=== PATIENT | female | born 1970 | race Caucasian/White ===

== ENCOUNTER 2017-01-03 08:24 | Emergency (ER) | payer MEDICARE, OTHER ==
[~2017-01-03 08:24] MED LIST: ACIPHEX20 MG PO; ALBUTEROL17 GM INH; ALPRAZOLAM PO; ALPRAZOLAM0.5 MG PO; AMBIEN PO; AMITIZA24 MCG PO; AMLODIPINE BESY10 MG PO; AMOXIL500 M2 PO; ATENOLOL PO; ATENOLOL50 MG PO; ATIVAN0.5 M1 PO; BIAXIN PO; CAPTOPRIL; CARAFATE PO; CLARITIN10 M2 PO; CLARITIN10 MG PO; CLONIDINE HCL0.1 MG PO; COLACE PO; CYANOCOBAL1000 MCG/M INJ; DAKIN'S473 M1 MC; DESYREL100 MG PO; DESYREL50 M1 PO; DIAZEPAM10 MG PO; DIFLUCAN PO; DOC-Q-LACE100 MG PO; DOCUSATE SODIU100 MG PO; DSS100 MG PO; DYNACIN100 MG PO; FUROSEMIDE40 MG PO; GABAPENTIN600 MG PO; GLUCOTROL XL PO; HCTZ; HCTZ PO; HYOMAX0.125 MG PO; IRON325 ( 651 PO; JANUVIA PO; KADIAN PO; KADIAN100 MG PO; LANTUS SOLOSTAR3 ML SQ; LASIX PO; LASIX20 MG PO; LEVAQUIN750 MG; LEVAQUIN750 MG PO; LISINOPRIL10 MG PO; LISINOPRIL20 MG PO; LOPID600 MG PO; LORTAB 10-3251 EACH PO; LORTAB 10/500 T1 TAB PO; LORTAB 101 TAB 10/5 PO; LORTAB 7.5-3251 EACH PO; LORTAB PO; LYRICA PO; MACROBID100 M1 PO; MINOCIN100 M1 PO; MUSCLE RELAXANT PO; NEURONTIN100 MG PO; NEURONTIN300 MG PO; NEXIUM PO; NORCO 10/3251 TAB PO; NORFLEX100 M1; NORVASC PO; NORVASC10 MG PO; OXYCONTIN40 MG PO; PERCOCET 10/3251 TAB PO; PERCOCET 5-3251 TAB PO; PERCOCET 7.5-31 EACH PO; PHENERGAN25 M1 DOB; PHENERGAN25 M1 PO; PHENERGAN25 MG PO; PRAVASTATIN SOD40 MG PO; PRILOSEC20 M1 PO; PRILOSEC20 MG PO; PROTONIX PO; PROVERA5 MG PO; QUETIAPINE FUMA25 MG PO; RANITIDINE HCL150 M1 PO; REGLAN10 MG PO; SINGULAIR PO; SOMA PO; TENORMIN50 MG PO; TRAZODONE PO; VIT B12 INJ; VIT D2 PO; VITAMIN D; VOLTAREN75 MG PO; XANAX1 MG PO; ZANTAC PO; ZANTAC150 MG PO; ZESTRIL10 MG PO; ZOLPIDEM TARTRA10 MG PO; ZYRTEC; [UNRECOGNIZED DRUG - OTHER] TOP
[2017-04-26] MEDS ORDERED: ROBAXIN 750750 M1 PO (14:07)
[2017-04-26] MEDS ORDERED: TIZANIDINE HCL4 M1 PO (14:07)
[2017-04-26] MEDS ORDERED: ROPINIROLE HCL0.5 MG PO (14:08)
[2017-04-26] MEDS ORDERED: NEURONTIN600 MG PO (14:08)
[2017-04-26] MEDS ORDERED: TENORMIN50 MG PO (14:08)
[2017-04-26] MEDS ORDERED: MONTELUKAST SOD10 MG PO (14:09)
[2017-04-26] MEDS ORDERED: AMLODIPINE BESYL5 MG PO (14:09)
[2017-04-26] MEDS ORDERED: PHENERGAN25 MG PO (14:10)
[2017-04-26] MEDS ORDERED: AMBIEN10 MG PO (14:10)
[2017-04-26] MEDS ORDERED: PRINIVIL20 M1 PO (14:10)
[2017-04-26] MEDS ORDERED: HYDROXYZINE PAM25 MG PO (14:11)
[2017-04-26] MEDS ORDERED: DESYREL150 M1 PO (14:11)
[2017-04-26] MEDS ORDERED: XANAX1 MG PO (14:11)
[2017-04-26] MEDS ORDERED: PROTONIX PO (14:12)
[2017-04-26] MEDS ORDERED: HYDROCODON-ACE1 EAC5 PO (14:13)
== END 2017-01-03 09:04 | disposition home or self-care (01) ==
LOC: SED 08:24
DX: L03.115 Cellulitis of right lower limb (principal); I25.2 Old myocardial infarction; I10 Essential (primary) hypertension; J44.9 Chronic obstructive pulmonary disease, unspecified; K21.9 Gastro-esophageal reflux disease without esophagitis; Z90.49 Acquired absence of other specified parts of digestive tract; F17.200 Nicotine dependence, unspecified, uncomplicated; Z79.899 Other long term (current) drug therapy; Z88.2 Allergy status to sulfonamides; Z88.1 Allergy status to other antibiotic agents; Z91.013 Allergy to seafood
CPT/HCPCS: 99282

== ENCOUNTER 2017-03-17 21:12 | Emergency (ER) | payer MEDICARE, OTHER ==
--- NOTE | ~2017-03-17 | US98 ---
[facility] A Service of [facility] RADIOLOGY TEXT RESULTS PATIENT: ANNE MURPHY LOCATION: [facility] : 72 UNIT #: [id number] AGE: [address]: Daniele Noe SEX: F ORDER DR: [id number] [facility] [address] [place], [place] [address] [id number] E MR#: [id number] Acc #: [id number] NAME: ANNE MURPHY : 1970 SEX: F STUDY DATE/TIME: 03/18/2017 0:03 UNIT: BHAVYA ROOM: STUDY DESCRIPTION: US Pelvic Non-OB Complete Attending Physician: Daniele Noe P.A.-C. Ordering Physician: Daniele Noe P.A.-C. Primary Care Physician: Rudy Rosenthal M.D. MEDICAL IMAGING REPORT This report is preliminary unless electronic signature is present EXAM Pelvic ultrasound INDICATION Pelvic pain for 3 days with history of ovarian cysts. COMPARISON 09/19/2015. FINDINGS Transvaginal and transabdominal imaging was performed. The uterus is about 7.0 x 3.1 x 4.1 cm and appears normal. The endometrial tissue is normal measuring 4 mm in thickness. The left ovary is 3.3 cm in diameter and contains a cyst measuring 2 cm in diameter. The right ovary is 2 cm in diameter and appears normal. There is flow in each ovary. The echogenic lesion seen previously in the left ovary in September has resolved. IMPRESSION 1. 2 cm left ovarian cyst. 2. Normal flow in both ovaries. 3. Normal uterus and endometrial tissue. Dictated by... Porfirio Houston M.D. THIS IS AN ELECTRONICALLY VERIFIED REPORT Porfirio Houston M.D. at 03/18/2017 12:38 PM JEFF/goyo [facility] A Service of [facility] RADIOLOGY TEXT RESULTS PATIENT: ANNE MURPHY LOCATION: [facility] : 72 UNIT #: [id number] AGE: [address]: Daniele Noe SEX: F ORDER DR: TD: 03/18/2017 09:35 JOB #: [id number] MEDICAL IMAGING REPORT Page 1 of 1 COPY
[2017-03-17 23:22] LABS: URINE SOURCE CLEAN CATCH
[2017-03-17 23:26] LABS: URINE APPEARANCE CLEAR; URINE BILIRUBIN NEG (NEG); URINE BLOOD NEG (NEG); URINE COLOR YELLOW; URINE GLUCOSE NEG (NEG); URINE KETONE NEG (NEG); URINE LEUKOCYTE ESTERASE 1+ (NEG); URINE NITRATE POS (NEG); URINE PROTEIN NEG (NEG); URINE SPECIFIC GRAVITY 1.017 (1.003-1.035); URINE UROBILINOGEN 0.2 MG/DL (NEG)
[2017-03-17 23:27] LABS: CULTURE INDICATED? YES; U HYALINE CASTS AUWI 0-2 /[LPF]; URBCS1 AUWI 0-2 /[HPF] (0-2); URINE BACTERIA AUWI 3+ (NEGATIVE); URINE SQUAMOUS EPITHELIAL CELL NONE SEEN /[HPF]
[2017-03-18 00:32] LABS: BASOPHIL% 0.6 % (0-2.5); DIFF IND NO; EOSINOPHIL# 0.1 X10e3 (0-0.7); EOSINOPHIL% 0.7 % (0.0-7.0); HEMATOCRIT 38.9 % (35.0-45.0); HEMOGLOBIN 12.4 gm/dL (12.0-16.0); LYMPHOCYTE# 2.6 X10e3 (1.0-3.5); LYMPHOCYTE% 33.7 % (17.0-45.0); MEAN PLATELET VOLUME 8.7 FL (6.5-11.5); MONOCYTE# 0.7 X10e3 (0-1.0); MONOCYTE% 9.3 % (3.0-12.0); NEUTROPHIL# 4.3 X10e3 (1.5-7.1); NEUTROPHIL% 55.7 % (40-75); PLATELET COUNT 263 X10e3 (140-420); RED BLOOD COUNT 4.14 X10e (3.90-5.30); RED CELL DISTRIBUTION WIDTH 16.9 % (11.0-15.5); WHITE BLOOD COUNT 7.8 X10e3 (4.0-10.5)
[2017-03-18 00:40] LABS: ALBUMIN SERUM 4.2 g/dL (3.5-5.0); ALKALINE PHOSPHATASE 57 U/L (32-92); ALT (SGPT) 15 U/L (10-40); AST (SGOT) 19 U/L (10-42); BILIRUBIN, DIRECT <0.1 mg/dL (0.0-0.2); BILIRUBIN,INDIRECT 0.4 mg/dL (0.0-0.9); BILIRUBIN,TOTAL 0.5 mg/dL (0.2-2.0); BLOOD UREA NITROGEN 21 mg/dL (9-23); CALCIUM SERUM 9.2 mg/dL (8.4-10.2); CARBON DIOXIDE 27 mmol/L (22-31); CHLORIDE 104 mmol/L (100-111); GLUCOSE FASTING 94 mg/dL (70-110); LIPASE 27 U/L (22-51); POTASSIUM 4.2 mmol/L (3.5-5.1); PROTEIN TOTAL SERUM 7.5 g/dL (6.0-8.3); SODIUM 140 mmol/L (135-145)
[2017-04-26] MEDS ORDERED: TIZANIDINE HCL4 M1 PO (14:07)
[2017-04-26] MEDS ORDERED: ROBAXIN 750750 M1 PO (14:07)
[2017-04-26] MEDS ORDERED: ROPINIROLE HCL0.5 MG PO (14:08)
[2017-04-26] MEDS ORDERED: NEURONTIN600 MG PO (14:08)
[2017-04-26] MEDS ORDERED: TENORMIN50 MG PO (14:08)
[2017-04-26] MEDS ORDERED: MONTELUKAST SOD10 MG PO (14:09)
[2017-04-26] MEDS ORDERED: AMLODIPINE BESYL5 MG PO (14:09)
[2017-04-26] MEDS ORDERED: PHENERGAN25 MG PO (14:10)
[2017-04-26] MEDS ORDERED: PRINIVIL20 M1 PO (14:10)
[2017-04-26] MEDS ORDERED: AMBIEN10 MG PO (14:10)
[2017-04-26] MEDS ORDERED: DESYREL150 M1 PO (14:11)
[2017-04-26] MEDS ORDERED: HYDROXYZINE PAM25 MG PO (14:11)
[2017-04-26] MEDS ORDERED: XANAX1 MG PO (14:11)
[2017-04-26] MEDS ORDERED: PROTONIX PO (14:12)
[2017-04-26] MEDS ORDERED: HYDROCODON-ACE1 EAC5 PO (14:13)
== END 2017-03-18 03:50 | disposition home or self-care (01) ==
LOC: CED 21:12
PROVIDERS: Physician Assistant
DX: N30.90 Cystitis, unspecified without hematuria (principal); F17.210 Nicotine dependence, cigarettes, uncomplicated; Z90.49 Acquired absence of other specified parts of digestive tract; Z90.89 Acquired absence of other organs; Z79.899 Other long term (current) drug therapy; Z88.2 Allergy status to sulfonamides; Z88.1 Allergy status to other antibiotic agents; Z91.013 Allergy to seafood
CPT/HCPCS: 36415; 76856; 80048; 80076; 81003; 83690; 84703; 85025; 87086; 87088; 87186; 96361; 96374; 96375; 99284; J1170; J1885; J2405

== ENCOUNTER 2017-04-15 15:38 | Emergency (ER) | payer MEDICARE, OTHER ==
[2017-04-15] MEDS ORDERED: LISINOPRIL (15:44)
[2017-04-15 16:32] LABS: URINE SOURCE CLEAN CATCH
[2017-04-15 16:39] LABS: URINE APPEARANCE CLEAR; URINE BILIRUBIN NEG (NEG); URINE BLOOD NEG (NEG); URINE COLOR YELLOW; URINE GLUCOSE NEG (NORM); URINE KETONE NEG (NEG); URINE LEUKOCYTE ESTERASE NEG (NEG); URINE NITRATE NEG (NEG); URINE PROTEIN NEG (NEG); URINE UROBILINOGEN 0.2 MG/DL (NORM)
[2017-04-15 16:46] LABS: MICRO INDICATED? NO
[2017-04-26] MEDS ORDERED: TIZANIDINE HCL4 M1 PO (14:07)
[2017-04-26] MEDS ORDERED: ROBAXIN 750750 M1 PO (14:07)
[2017-04-26] MEDS ORDERED: TENORMIN50 MG PO (14:08)
[2017-04-26] MEDS ORDERED: NEURONTIN600 MG PO (14:08)
[2017-04-26] MEDS ORDERED: ROPINIROLE HCL0.5 MG PO (14:08)
[2017-04-26] MEDS ORDERED: MONTELUKAST SOD10 MG PO (14:09)
[2017-04-26] MEDS ORDERED: AMLODIPINE BESYL5 MG PO (14:09)
[2017-04-26] MEDS ORDERED: PRINIVIL20 M1 PO (14:10)
[2017-04-26] MEDS ORDERED: AMBIEN10 MG PO (14:10)
[2017-04-26] MEDS ORDERED: PHENERGAN25 MG PO (14:10)
[2017-04-26] MEDS ORDERED: HYDROXYZINE PAM25 MG PO (14:11)
[2017-04-26] MEDS ORDERED: XANAX1 MG PO (14:11)
[2017-04-26] MEDS ORDERED: DESYREL150 M1 PO (14:11)
[2017-04-26] MEDS ORDERED: PROTONIX PO (14:12)
[2017-04-26] MEDS ORDERED: HYDROCODON-ACE1 EAC5 PO (14:13)
== END 2017-04-15 17:37 | disposition home or self-care (01) ==
LOC: SED 15:38
PROVIDERS: Emergency Medicine
DX: S39.012A Strain of muscle, fascia and tendon of lower back, initial encounter (principal); M54.2 Cervicalgia; F41.9 Anxiety disorder, unspecified; G43.909 Migraine, unspecified, not intractable, without status migrainosus; I10 Essential (primary) hypertension; J44.9 Chronic obstructive pulmonary disease, unspecified; K21.9 Gastro-esophageal reflux disease without esophagitis; I25.2 Old myocardial infarction; Z90.89 Acquired absence of other organs; Z90.49 Acquired absence of other specified parts of digestive tract; Z95.1 Presence of aortocoronary bypass graft; F17.200 Nicotine dependence, unspecified, uncomplicated; W01.0XXA Fall on same level from slipping, tripping and stumbling without subsequent striking against object, initial encounter; Y92.009 Unspecified place in unspecified non-institutional (private) residence as the place of occurrence of the external cause
CPT/HCPCS: 81003; 96372; 99284; J1885

== ENCOUNTER → 2017-04-30 | Day surgery (SDC) | payer MEDICARE, OTHER ==
[~2017-04-30] MED LIST changes: +AMBIEN10 MG PO; +AMLODIPINE BESYL5 MG PO; +CARAFATE; +DESYREL150 M1 PO; +HYDROCODON-ACE1 EAC5 PO; +HYDROXYZINE PAM25 MG PO; +LISINOPRIL; +MONTELUKAST SOD10 MG PO; +NEURONTIN600 MG PO; +PRINIVIL20 M1 PO; +ROBAXIN 750750 M1 PO; +ROPINIROLE HCL0.5 MG PO; +TIZANIDINE HCL4 M1 PO
--- NOTE | ~2017-04-30 | OR ---
Unit #: [id number] #: [id number] Patient: ANNE MURPHY [id number] [address] [id number] O MR#: [id number] NAME: ANNE MURPHY ROOM: Date of Procedure: 04/30/2017 Admission Date: 04/30/2017 Surgeon: Myles Dickson Jr., M.D. : 1970 Attending Physician: Myles Dickson Jr., M.D. Primary Care Physician: Rudy Rosenthal M.D. OPERATIVE REPORT INDICATION FOR PROCEDURE The patient is a 46-year-old white female with known past history for gastric bypass surgery. She has had previous stomach problems and had a scope, which previously revealed marginal ulcer. She states that she has continued to have mid epigastric abdominal pain and feels she still has a marginal ulcer. She is brought to the endoscopy suite at this time for upper endoscopy at her request. PREOPERATIVE DIAGNOSIS Past history of marginal ulcer, status post gastric bypass surgery. POSTOPERATIVE DIAGNOSIS Past history of marginal ulcer, status post gastric bypass surgery, noting two small ulcers. ANESTHESIA MAC anesthesia. PROCEDURE PERFORMED Flexible fiberoptic esophagogastrojejunoscopy. DESCRIPTION OF PROCEDURE The patient was positioned in Mosley position with left side down. After being given MAC anesthesia, the Olympus XQ scope was passed in the proximal esophagus. The entire esophagus was examined. There was no evidence of any esophagitis. No evidence of any stenosis. The scope was advanced through the GE junction down through the cardia to the gastric pouch, where there was a gastrojejunostomy anastomosis with some mild erythema around it. Just beyond the anastomosis in the jejunum, there were 2 small marginal ulcers, which were not actively bleeding and superficial in appearance. The scope was then advanced down approximately 20 inches in the jejunum, which appeared normal with no other abnormalities. The scope was then slowly brought back up to the area of the stomach and retroflexed back up to the area of the cardia. There was no significant hiatal hernia present. The stomach distended well. The scope was slowly removed. The patient tolerated the procedure well and discharged in satisfactory condition. Dictated by... Myles Dickson Jr., M.D. Unit #: [id number] #: [id number] Patient: ANNE MURPHY HINA DOE/steven TD: 04/30/2017 16:58 JOB #: [id number] OPERATIVE REPORT Page 1 of 1 X Myles Dickson MD PROCEDURE OPERATIVE NOTE
== END | disposition home or self-care (01) ==
LOC: COPS 11:47
DX: K28.9 Gastrojejunal ulcer, unspecified as acute or chronic, without hemorrhage or perforation (principal); J45.909 Unspecified asthma, uncomplicated; F17.210 Nicotine dependence, cigarettes, uncomplicated; M19.90 Unspecified osteoarthritis, unspecified site; K92.1 Melena; K21.9 Gastro-esophageal reflux disease without esophagitis; G89.29 Other chronic pain; M54.2 Cervicalgia; G25.81 Restless legs syndrome; Z87.442 Personal history of urinary calculi; Z98.84 Bariatric surgery status; Z79.899 Other long term (current) drug therapy; Z98.890 Other specified postprocedural states; Z90.49 Acquired absence of other specified parts of digestive tract; Z98.51 Tubal ligation status; Z88.2 Allergy status to sulfonamides; Z88.1 Allergy status to other antibiotic agents; Z88.8 Allergy status to other drugs, medicaments and biological substances

== ENCOUNTER 2017-06-04 07:38 | Emergency (ER) | payer MEDICARE, OTHER ==
--- NOTE | ~2017-06-04 | CR173 ---
[facility]. [facility] A Service of [facility] RADIOLOGY TEXT RESULTS PATIENT: ANNE MURPHY LOCATION: SED : 72 UNIT #: [id number] AGE: [address]: Alina Carrizales MD SEX: F ORDER DR: [id number] [address] [address] [id number] E MR#: [id number] Acc #: [id number] NAME: ANNE MURPHY : 1970 SEX: F STUDY DATE/TIME: 06/04/2017 08:28 UNIT: SED ROOM: STUDY DESCRIPTION: CR Knee 3 Views Rt Attending Physician: Alina Carrizales M.D. Ordering Physician: Alina Carrizales M.D. Primary Care Physician: Rudy Rosenthal M.D. MEDICAL IMAGING REPORT This report is preliminary unless electronic signature is present. EXAM Right knee 3 views, 06/04/2017 0828 hours HISTORY 46-year-old woman fell down steps yesterday, complaining of diffuse right knee pain since fall. COMPARISON None. FINDINGS AP, cross-table lateral and sunrise views demonstrate no joint effusion or fracture. There is mild medial and patellofemoral joint space loss. IMPRESSION 1. No joint effusion or fracture. 2. There is medial and patellofemoral mild joint space loss. Dictated by... Rochelle Metz M.D. THIS IS AN ELECTRONICALLY VERIFIED REPORT Rochelle Metz M.D. at 06/04/2017 2:28 PM ONEIL/james TD: 06/04/2017 11:32 JOB #: [id number] MEDICAL IMAGING REPORT Page 1 of 1
--- NOTE | ~2017-06-04 | CR151 ---
[facility] A Service of [facility] RADIOLOGY TEXT RESULTS PATIENT: ANNE MURPHY LOCATION: SED : 72 UNIT #: [id number] AGE: [address]: Alina Carrizales MD SEX: F ORDER DR: [id number] [address] [address] [id number] E MR#: [id number] Acc #: [id number] NAME: ANNE MURPHY : 1970 SEX: F STUDY DATE/TIME: 06/04/2017 UNIT: SED ROOM: STUDY DESCRIPTION: CR Hip Min 2 Views Rt Attending Physician: Alina Carrizales M.D. Ordering Physician: Alina Carrizales M.D. Primary Care Physician: Rudy Rosenthal M.D. MEDICAL IMAGING REPORT This report is preliminary unless electronic signature is present. EXAM Right hip 2 views 06/04/2017 0828 hours HISTORY 46-year-old woman who fell down steps yesterday, complaining of knee and hip pain since fall. COMPARISON CT abdomen and pelvis 11/23/2016 FINDINGS AP pelvis and frog lateral view of the right hip demonstrate spurring at both hip joints. There is mild medial joint space loss bilaterally. There is no hip fracture. There are pelvic phleboliths present. There is a bone island in the medial aspect of the right superior ramus. IMPRESSION There is mild medial joint space loss and spurring at both hip joints similar to prior CT 11/23/2016. There is no fracture or dislocation. Dictated by... Rochelle Metz M.D. THIS IS AN ELECTRONICALLY VERIFIED REPORT Rochelle Metz M.D. at 06/04/2017 2:28 PM ONEIL/lizabeth TD: 06/04/2017 11:28 JOB #: [id number] [facility] A Service of [facility] RADIOLOGY TEXT RESULTS PATIENT: ANNE MURPHY LOCATION: SED : 72 UNIT #: [id number] AGE: [address]: Alina Carrizales MD SEX: F ORDER DR: MEDICAL IMAGING REPORT Page 1 of 1
[~2017-06-04 07:38] MED LIST changes: -CARAFATE
[2017-06-04] MEDS ORDERED: CARAFATE (07:54)
== END 2017-06-04 10:09 | disposition home or self-care (01) ==
LOC: SED 07:38
DX: S83.91XA Sprain of unspecified site of right knee, initial encounter (principal); I10 Essential (primary) hypertension; J44.9 Chronic obstructive pulmonary disease, unspecified; F17.200 Nicotine dependence, unspecified, uncomplicated; Z88.2 Allergy status to sulfonamides; Z88.1 Allergy status to other antibiotic agents; W01.0XXA Fall on same level from slipping, tripping and stumbling without subsequent striking against object, initial encounter; Y92.009 Unspecified place in unspecified non-institutional (private) residence as the place of occurrence of the external cause; Z79.899 Other long term (current) drug therapy
CPT/HCPCS: 29505; 73502; 73562; 96372; 99283; J1170; J1885